=== PATIENT | female | born 1950 | race Caucasian/White ===

== ENCOUNTER 2018-01-17 13:46 | Emergency (ER) | payer OTHER ==
--- OUTSIDE RECORDS SUMMARY | 2018-01-17 13:50 | XMS REPORT | Clinical Summary ---
:1950 Author Organization [facility] Address [address] [place] [address] Care Team Providers Name Role Phone Harris Pena MD Primary Care Provider Allergies Active Allergy Reactions Severity Noted Date Comments Penicillins Hives 05/01/2015 Sulfamethoxazole-Trimethoprim 07/02/2010 Palpitations, Nausea/vomiting Sulfasalazine Hives 05/01/2015 Medications Medication Sig Dispensed Refills Start Date End Date Status clonAZEPAM Take 0.5 mg by 0 Active (KlonoPIN) 0.5 MG mouth. tablet esomeprazole Take 20 mg by 0 Active (NexIUM) 20 MG mouth. capsule traMADol (ULTRAM) 0 04/23/2017 Active 50 mg tablet tiZANidine Take 1 tablet 60 tablet 1 06/29/2017 06/29/2018 Active (ZANAFLEX) 2 MG (2 mg total) tablet by mouth nightly. traMADol (ULTRAM) Take 1 tablet 40 tablet 0 06/11/2017 09/09/2017 50 mg (50 mg total) tabletIndications: by mouth every Spinal stenosis of 8 (eight) lumbar region with hours as neurogenic needed for claudication moderate pain for up to 90 days. TiZANidine Take 1 capsule 30 capsule 0 06/11/2017 06/29/2017 Discontinued (ZANAFLEX) 2 MG (2 mg total) capsuleIndications by mouth 2 : Spinal stenosis (two) times a of lumbar region day for 120 with neurogenic days. claudication Active Problems Not on file Encounters Date Type Specialty Care Team Description 06/29/2017 Refill Orthopedic Surgery Gerson Miller MD 06/24/2017 Documentation Orthopedic Surgery Gerson Miller MD 06/17/2017 Office Visit Orthopedic Surgery Gerson Miller Spinal stenosis jayla Thompson MD lumbar region with neurogenic claudication (Primary Dx) 06/11/2017 Orders Only Orthopedic Surgery Mina Spinal stenosis of SANJUANITA Carbajal lumbar region with neurogenic claudication (Primary Dx) 06/03/2017 Hospital Encounter Radiology Gerson Miller Spinal Lashonda MD lumbar region with neurogenic claudication 05/28/2017 Orders Only Orthopedic Surgery Mina Spinal stenosis of [place] SANJUANITA lumbar region with neurogenic claudication (Primary Dx) 05/06/2017 Office Visit Orthopedic Surgery Gerson Miller Spinal Lashonda MD lumbar region with neurogenic claudication (Primary Dx) 04/27/2017 Hospital Encounter Radiology Gerson Miller Spinal stenosis jayla Thompson MD lumbar region with neurogenic claudication 04/27/2017 Office Visit Orthopedic Surgery Gerson Miller Spinal stenosis jayla Thompson MD lumbar region with neurogenic claudication (Primary Dx) after 01/16/2017 Family History Medical History Relation Name Comments Diabetes Brother Acosta Crooks Diabetes Brother Timothy Crooks Diabetes Brother Daniel Crooks Cancer Father Tadeo De La O Valeriy Medina Prostate cancer Diabetes Father Tadeo Jaylyn Crooks Jr Diabetes Mother Chaparrita Crooks Relation Name Status Comments Brother Acosta Crooks Brother Timothy Crooks Brother Daniel Crooks Father Tadeo De La O Valeriy Mother Chaparrita Crooks Social History Tobacco Use Types Packs/Day Years Used Date Former Smoker Cigarettes 1 15 Quit: 11/08/1992 Smokeless Tobacco: Never Used Alcohol Use Drinks/Week oz/Week Comments Yes 1 Glasses of wine Social Sex Assigned at Date Recorded Not on file Job Start Date Occupation Industry Not on file Not on file Not on file Travel History Travel Start Travel End No recent travel history available. Last Filed Vital Signs Vital Sign Reading Time Taken Blood Pressure 130/66 06/03/2017 1:30 PM CDT Pulse 54 06/03/2017 1:15 PM CDT Temperature 36.3 C (97.4 F) 06/03/2017 11:37 AM CDT Respiratory Rate 18 06/03/2017 1:15 PM CDT Oxygen Saturation 99% 06/03/2017 1:15 PM CDT Inhaled Oxygen Concentration - - Weight 67.1 kg (148 lb) 06/03/2017 11:37 AM CDT Height 167.6 cm (5' 6") 06/03/2017 11:37 AM CDT Body Mass Index 23.89 06/03/2017 11:37 AM CDT Plan of Treatment Health Maintenance Due Date Last Done Comments BREAST CANCER SCREENING 12/24/1999 COLON CANCER SCREENING 12/24/1999 SHINGRIX VACCINE (1 of 2) 12/24/1999 ZOSTER VACCINE 2009 PNEUMOCOCCAL POLYSACCHARIDE VACCINE AGE 65 AND OVER 2014 PNEUMOCOCCAL-13 2014 INFLUENZA VACCINE 09/08/2017 Procedures Procedure Name Priority Date/Time Associated Diagnosis Comments IR EPIDURAL Routine 06/03/2017 12:39 Spinal stenosis of Results for this INJECTION LUMBAR PM CDT lumbar region with procedure are in neurogenic the results claudication section. MRI LUMBAR SPINE WO Routine 04/27/2017 2:50 Spinal stenosis of Results for this CONTRAST PM CDT lumbar region with procedure are in neurogenic the results claudication section. after 01/16/2017 Results IR Epidural Steroid Injection Lumbar (06/03/2017 12:39 PM CDT) Narrative Performed At EXAMINATION:IR EPIDURAL STEROID INJECTION LUMBAR [facility] CLINICAL HISTORY:M48.062 Spinal stenosislumbar region with neurogenic claudication, scs COMPARISON:None. Findings: Informed consent was obtained. Lower back was prepped and draped in usual sterile fashion. 1% lidocaine was used for local anesthesia. A 20-gauge Touhy needle was advanced into posterior epidural space at L3-4 level under intermittent fluoroscopic guidance. Injection of 2 cc of Omnipaque 240 showed good opacification of the posterior epidural space. Then 2 cc of Marcaine 0.25% and 8 mg of dexamethasone were injected. No complications. Total fluoroscopic time was 1.1 minute. Total air kerma was 53 mGy. IMPRESSION: Successful fluoroscopic guided epidural steroid and anesthetic injection at L3-4. [facility]-[id number] Procedure Note Hm Interface, Radiology Results Incoming - 06/03/2017 3:10 PM CDT EXAMINATION: IR EPIDURAL STEROID INJECTION LUMBAR CLINICAL HISTORY: M48.062 Spinal stenosis lumbar region with neurogenic claudication, scs COMPARISON: None. Findings: Informed consent was obtained. Lower back was prepped and draped in usual sterile fashion. 1% lidocaine was used for local anesthesia. A 20-gauge Touhy needle was advanced into posterior epidural space at L3-4 level under intermittent fluoroscopic guidance. Injection of 2 cc of Omnipaque 240 showed good opacification of the posterior epidural space. Then 2 cc of Marcaine 0.25% and 8 mg of dexamethasone were injected. No complications. Total fluoroscopic time was 1.1 minute. Total air kerma was 53 mGy. IMPRESSION: Successful fluoroscopic guided epidural steroid and anesthetic injection at L3- 4. [facility]-[id number] Performing Organization Address City/State/Zipcode Phone Number [facility] [address] [place] [address] MRI Lumbar Spine Wo Contrast (04/27/2017 2:50 PM CDT) Narrative Performed At EXAMINATION:MRI LUMBAR SPINE WO CONTRAST [facility] COMPARISON:None CLINICAL HISTORY:M48.062 Spinal stenosislumbar region with neurogenic claudication, SCS FINDINGS: L1-2: There is a small left posterior paramedian disc protrusion without significant impingement on the thecal sac. Facets are degenerated. The neural foramina are patent. L2-3: The disc is unremarkable without bulge or protrusion. The neural foramina are patent. The facets are degenerated. L3-4: There is a left foraminal disc protrusion which touches the L3 root but is of indeterminate clinical significance. The neural foramina are otherwise patent. The facets are degenerated. L4-5: There is fairly severe degenerative disc change with associated degenerative endplate change. Other is degenerative facet change. The neural foramina are patent. L5-S1: The disc is unremarkable without bulge or protrusion. The neural foramina are patent. There are degenerative facet changes. The spinal canal is of normal diameter. There is a scoliosis concave to the left. The conus medullaris and nerve roots are unremarkable. The bone marrow is normal. There is deconditioning of the posterior paraspinous muscles. IMPRESSION: 1. Left foraminal and extra foraminal L3-4 disc protrusion which touches the L3 root but is of indeterminate clinical significance. 2. Scoliosis concave to the left. 3. Generalized degenerative facet change. 4. Deconditioning of the posterior paraspinous muscles [facility]-[id number] Procedure Note Interface, Radiology Results Incoming - 04/27/2017 3:08 PM CDT EXAMINATION: MRI LUMBAR SPINE WO CONTRAST COMPARISON: None CLINICAL HISTORY: M48.062 Spinal stenosis lumbar region with neurogenic claudication, SCS FINDINGS: L1-2: There is a small left posterior paramedian disc protrusion without significant impingement on the thecal sac. Facets are degenerated. The neural foramina are patent. L2-3: The disc is unremarkable without bulge or protrusion. The neural foramina are patent. The facets are degenerated. L3-4: There is a left foraminal disc protrusion which touches the L3 root but is of indeterminate clinical significance. The neural foramina are otherwise patent. The facets are degenerated. L4-5: There is fairly severe degenerative disc change with associated degenerative endplate change. Other is degenerative facet change. The neural foramina are patent. L5-S1: The disc is unremarkable without bulge or protrusion. The neural foramina are patent. There are degenerative facet changes. The spinal canal is of normal diameter. There is a scoliosis concave to the left. The conus medullaris and nerve roots are unremarkable. The bone marrow is normal. There is deconditioning of the posterior paraspinous muscles. IMPRESSION: 1. Left foraminal and extra foraminal L3-4 disc protrusion which touches the L3 root but is of indeterminate clinical significance. 2. Scoliosis concave to the left. 3. Generalized degenerative facet change. 4. Deconditioning of the posterior paraspinous muscles [facility]-[id number] Performing Organization Address City/State/Zipcode Phone Number [facility] [address] [place] [address] after 01/16/2017 Insurance Payer Benefit Plan / Group Subscriber ID Type Phone Address MEDICARE MEDICARE PART A AND B xxxxxxxxxx Medicare [place], [place] COMMERCIAL MISC MISC COMMERCIAL xxxxxxxxxx Commercial (Work) [id number] Advance Directives Patient has advance care planning documents on file. For more information, please contact:[facility] [place] [phone]
--- OUTSIDE RECORDS SUMMARY | 2018-01-17 13:50 | XMS REPORT ---
:1950 [facility] Address [address] [place] [address] Care Team Providers Name Role Phone Unavailable Unavailable Unavailable Payers Payer Name Policy Type Policy Number Effective Date Expiration Date Problems This patient has no known problems. Allergies, Adverse Reactions, Alerts Allergy Name Allergy Status Severity Reaction(s) Onset Inactive Treating Comments Type Date Date Clinician Penicillins DA Active U 04-16 00:00: 00 Sulfa DA Active U (Sulfonamide 04-16 Antibiotics) 00:00: 00 sulfamethoxazol DA Active U e 04-16 00:00: 00 trimethoprim DA Active U 04-16 00:00: 00 Medications This patient has no known medications.
[2018-01-17 15:50] LABS: Absolute Monocytes 0.3 K/uL (0.1-1.3); Absolute Neutrophil 2.2 K/uL (1.8-8.0); Eosinophils % 3.1 % (0-4.4); Hematocrit 40.1 % (36.0-45.0); MCH 32.4 pg (27.0-35.0); MPV 9.9 fL (7.6-11.3); Monocytes % 8.2 % (3.3-12.3); RBC Red Blood Cell Count 4.27 M/uL (3.86-4.86)
[2018-01-17] MEDS ORDERED: HYDROCODONE/APAP 10/325 TAB ONE (15:56)
[2018-01-17 16:01] LABS: Potassium 3.7 mmol/L (3.5-5.1)
[2018-01-17 16:45] LABS: Urine Blood NEGATIVE (NEG); Urine Glucose NEGATIVE (NEG); Urine Protein NEGATIVE (NEG); Urine Specific Gravity 1.015 (1.005-1.030)
--- NOTE | 2018-01-17 17:10 | RAD REPORT ---
EXAM DESCRIPTION: CT - Chest For Pe Angio - 01/17/2018 5:01 pm CLINICAL HISTORY: Chest pain. CHEST PAIN COMPARISON: Ribs Left dated 01/17/2018; Abdomen Pelvis W/Wo Contrast dated 05/13/2017 TECHNIQUE: CT angiogram of the pulmonary arteries was performed with MIP. All CT scans are performed using dose optimization technique as appropriate and may include automated exposure control or mA/KV adjustment according to patient size. FINDINGS: No evidence of pulmonary thromboembolism. No acute aortic finding demonstrated. Small opacity in the right apex may represent scarring or very early infiltrate. Otherwise, the lungs are clear. No significant pericardial or pleural fluid. No concerning bony finding. IMPRESSION: No evidence of pulmonary thromboembolism.
[2018-01-17] MEDS ORDERED: METHYLPREDNISOLONE 125 MG INJ ONE (17:41)
[2018-01-17] MEDS ORDERED: AZITHROMYCIN 250 MG TAB ONE (17:41)
--- NOTE | 2018-01-17 17:58 | ER ---
Nurse's Notes [facility] Name: Brenda Crow Age: 67 yrs Sex: Female : 1950 Arrival Date: 01/17/2018 Time: 13:50 Bed 26 Private MD: Harris Pena Diagnosis: Pleurisy;Chest pain, unspecified;Pneumonia Presentation: 01/17 13:55 Presenting complaint: Patient states: sent from [facility]; i started having chest hj pain for the past few days and SOB; EKG was done, was told it was fine, was sent here to R/O PE; hx of breast cancer;. Transition of care: patient was not received from another setting of care. Onset of symptoms was January 17, 2018. Risk Assessment: Do you want to hurt yourself or someone else? Patient reports no desire to harm self or others. Initial Sepsis Screen: Does the patient meet any 2 criteria? No. Patient's initial sepsis screen is negative. Does the patient have a suspected source of infection? No. Patient's initial sepsis screen is negative. Care prior to arrival: None. 13:55 Method Of Arrival: Ambulatory 13:55 Acuity: ULISSES 3 hj Triage Assessment: 13:59 General: Appears in no apparent distress. uncomfortable, Behavior is calm, cooperative, hj appropriate for age. Pain: Complains of pain in chest. Respiratory: Reports shortness of breath Onset: The symptoms/episode began/occurred the patient has mild shortness of breath. Historical: - Allergies: 13:58 PENICILLINS; hj 13:58 Bactrim; hj - Home Meds: 13:58 Omeprazole Oral [Active]; hj - PMHx: 13:58 breast cancer; hj - PSHx: 13:58 Mastectomy; ANKLE SURG; hj - Immunization history:: Adult Immunizations up to date. - Social history:: Smoking status: Patient/guardian denies using tobacco, Patient/guardian denies using alcohol. - Ebola Screening: : Patient negative for fever greater than or equal to 101.5 degrees Fahrenheit, and additional compatible Ebola Virus Disease symptoms Patient denies exposure to infectious person Patient denies travel to an Ebola-affected area in the 21 days before illness onset. - Family history:: not pertinent. - Hospitalizations: : No recent hospitalization is reported. Screenin:59 Abuse screen: Denies threats or abuse. Denies injuries from another. Nutritional hj screening: No deficits noted. Tuberculosis screening: No symptoms or risk factors identified. Fall Risk None identified. Assessment: 13:59 Cardiovascular: Rhythm is regular. Respiratory: Airway is patent Respiratory effort is hj even, unlabored, Breath sounds are clear. 14:30 Reassessment: Patient refused EKG, states that she had one done at her doctors and will aj1 have it faxed over. 14:30 General: Appears in no apparent distress. comfortable, Behavior is calm, cooperative, aj1 appropriate for age. Neuro: Level of Consciousness is awake, alert, obeys commands. Cardiovascular: Patient's skin is warm and dry. Respiratory: Reports shortness of breath Airway is patent Respiratory effort is even, unlabored, Respiratory pattern is regular, symmetrical, Breath sounds are clear bilaterally. GI: No signs and/or symptoms were reported involving the gastrointestinal system. : No signs and/or symptoms were reported regarding the genitourinary system. EENT: No signs and/or symptoms were reported regarding the EENT system. Derm: No signs and/or symptoms reported regarding the dermatologic system. Skin is pink, warm \T\ dry. normal. Musculoskeletal: No signs and/or symptoms reported regarding the musculoskeletal system. Circulation, motion, and sensation intact. 15:08 Reassessment: Patient states that she does not want to have blood work and CT done, she aj1 would rather just get a Rx for antibiotics and go home. Notified Dr. Paz. 15:16 Reassessment: Dr. Paz at bedside. aj1 15:30 Reassessment: Patient appears in no apparent distress at this time. No changes from aj1 previously documented assessment. Patient and/or family updated on plan of care and expected duration. Pain level reassessed. Patient is alert, oriented x 3, equal unlabored respirations, skin warm/dry/pink. 15:51 Reassessment: Patient states that she does not want pain medication at this time. aj1 Patient was instructed to notify staff if she changes her mind and would like ordered pain medication. Vital Signs: 13:59 BP 128 / 53; Pulse 87; Resp 18; Temp 97.2(O); Pulse Ox 98% on R/A; Weight 67.13 kg; hj Height 5 ft. 6 in. (167.64 cm); Pain 3/10; 18:07 BP 140 / 68; Pulse 72; Resp 18; Pulse Ox 98% on R/A; aj1 13:59 Body Mass Index 23.89 (67.13 kg, 167.64 cm) hj ED Course: 13:50 Patient arrived in ED. sb2 13:51 Harris Pena MD is Private Physician. sb2 13:57 Triage completed. hj 13:59 Arm band placed on right wrist. hj 13:59 Patient has correct armband on for positive identification. Placed in gown. Bed in low hj position. Call light in reach. Side rails up X 1. 14:17 Stuart Paz MD is Attending Physician. rn 14:30 Radiology exam delayed due to lab results not completed at this time. (BUN/Creatinine). sj 14:30 No provider procedures requiring assistance completed. aj1 14:52 Kasie Coker, ASHTYN is Primary Nurse. aj1 14:59 Radiology exam delayed due to lab results not completed at this time. (BUN/Creatinine). vr 15:44 Inserted saline lock: 22 gauge in left antecubital area, using aseptic technique. Blood aj1 collected. 16:45 Note: UNABLE TO START IV, WAITING ON NOTIFICATION FROM NURSE TO START EXAM. vr 16:50 Accessed peripheral vein via ultrasound, utilizing dynamic ultrasound technique using iw 18G Nexia IV Catheter ,sterile technique, per hospital protocol. IV inserted by Dr. Paz. 17:01 CT Chest For PE Angio In Process Unspecified. EDMS 17:57 Harris Pena MD is Referral Physician. rn 18:08 IV discontinued, intact, bleeding controlled, No redness/swelling at site. Pressure aj1 dressing applied. Administered Medications: 17:39 Drug: SOLU-Medrol 125 mg Route: IVP; Site: left antecubital; aj1 17:59 Follow up: Response: No adverse reaction aj1 17:39 Drug: Zithromax 500 mg Route: PO; aj1 17:59 Follow up: Response: No adverse reaction aj1 17:59 Not Given (Patient Refused): [place] 10 mg-325 mg 1 tabs PO once aj1 Outcome: 17:58 Discharge ordered by MD. rn 18:08 Discharged to home ambulatory, with family. aj1 18:08 Condition: good 18:08 Discharge instructions given to patient, Instructed on discharge instructions, follow up and referral plans. medication usage, Demonstrated understanding of instructions, follow-up care, medications, Prescriptions given X 2. 18:09 Patient left the ED. aj1 Signatures: Dispatcher [employer] EDKasie Briscoe, RN RN jovan1 Oly Rangel Irene RN Stuart Ortiz MD MD rn Davis, Victoria vr Joaquin, Henry, RN RN hj Billeau, Sheri sb2 Corrections: (The following items were deleted from the chart) 14:02 13:59 Pulse 87bpm; Resp 18bpm; Pulse Ox 98% RA; Temp 97.2F Oral; 67.13 kg; Height 5 ft. hj 6 in.; BMI: 23.8; Pain 3/10; hj
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
== END 2018-01-17 18:09 | disposition home or self-care (01) ==
LOC: ER 13:46
PROC: 05HF33Z Insertion of Infusion Device into Left Cephalic Vein, Percutaneous Approach (ICD-10-PCS; principal; 2018-01-17)
DX: J18.9 Pneumonia, unspecified organism (principal); R07.9 Chest pain, unspecified; Z88.0 Allergy status to penicillin; Z88.1 Allergy status to other antibiotic agents; Z85.3 Personal history of malignant neoplasm of breast
CPT/HCPCS: 36415; 36569; 71275; 80048; 81003; 85025; 96374; 99284; J2930; Q9967

== ENCOUNTER 2018-05-01 10:06 | Emergency (ER) | payer OTHER ==
--- OUTSIDE RECORDS SUMMARY | 2018-05-01 10:08 | XMS REPORT ---
:1950 [facility] Address [address] [place] [address] Care Team Providers Name Role Phone Unavailable [...]
--- OUTSIDE RECORDS SUMMARY | 2018-05-01 10:08 | XMS REPORT | Clinical Summary ---
:1950 Author Organization [facility] Address [address] [place] [address] Care Team Providers Name Role Phone Harris [...] Dx) 06/03/2017 Hospital Encounter Radiology Gerson Miller MD lumbar region with neurogenic claudication 05/28/2017 Orders Only Orthopedic Surgery Mina Spinal stenosis of [place] SANJUANITA lumbar region with neurogenic claudication (Primary Dx) 05/06/2017 Office Visit Orthopedic Surgery Gerson Miller Spinal stenosis jayla Thompson MD lumbar region with neurogenic claudication (Primary Dx) after 04/30/2017 Family History Medical History Relation Name Comments Diabetes Brother Acosta Crooks Diabetes Brother Timothy Crooks Diabetes Brother Daniel Crooks Cancer Father Tadeo De La O Valeriy Medina Prostate cancer Diabetes Father Tadeo J Valeriy Medina Diabetes Mother Chaparrita Crooks Relation Name Status Comments Brother Acosta Crooks Brother Timothy Crooks Brother Daniel Crooks Father Tadeo De La O Crooks Mother Chaparrita Crooks Social History Tobacco Use [...] CANCER SCREENING 12/24/1999 COLON CANCER SCREENING 12/24/1999 SHINGLES VACCINES (#1) 12/24/1999 65+ PNEUMOCOCCAL VACCINE (1 of 2 - PCV13) 2014 PNEUMOCOCCAL POLYSACCHARIDE VACCINE AGE 65 AND OVER 2014 INFLUENZA VACCINE 09/08/2017 Procedures Procedure Name Priority Date/Time Associated Diagnosis Comments IR EPIDURAL Routine 06/03/2017 12:39 Spinal stenosis of Results for this INJECTION LUMBAR PM CDT lumbar region with procedure are in neurogenic the results claudication section. after 04/30/2017 Results IR Epidural Steroid Injection Lumbar (06/03/2017 12:39 PM CDT) Narrative Performed At EXAMINATION:IR EPIDURAL STEROID INJECTION LUMBAR [facility] CLINICAL HISTORY:M48.062 Spinal stenosislumbar region with [...] epidural steroid and anesthetic injection at L3-4. [facility]-[id number] Procedure Note Interface, Radiology Results Incoming - 06/03/2017 3:10 [...] steroid and anesthetic injection at L3- 4. [facility]-[id number] Performing Organization Address City/State/Zipcode Phone Number [facility] [address] [place] [address] after 04/30/2017 Insurance Payer Benefit Plan / Group Subscriber ID Type Phone Address MEDICARE MEDICARE PART A AND B xxxxxxxxxx Medicare [place], [place] COMMERCIAL MISC MISC COMMERCIAL xxxxxxxxxx Commercial (Work) [id number] Advance Directives Patient has advance care planning documents on file. For more information, please contact:Evangelista Fulton[address] [place] [address]
--- NOTE | 2018-05-01 11:38 | ER ---
Nurse's Notes [facility] Name: Brenda Crow Age: 67 yrs Sex: Female : 1950 Arrival Date: 05/01/2018 Time: 10:09 Bed 19 Private MD: Harris Pena Diagnosis: Cellulitis of right upper limb Presentation: 05/01 10:10 Presenting complaint: Patient states: i have breast cancer and i have lymphedema on my hj R arm, the other day i lifted heavy stuff, last night i noticed my R arm turned red, swollen and its hot; felt a knot on the R upper arm; denies trauma to the area;. Transition of care: patient was not received from another setting of care. Onset of symptoms was May 01, 2018. Risk Assessment: Do you want to hurt yourself or someone else? Patient reports no desire to harm self or others. Initial Sepsis Screen: Does the patient meet any 2 criteria? No. Patient's initial sepsis screen is negative. Does the patient have a suspected source of infection? No. Patient's initial sepsis screen is negative. Care prior to arrival: None. 10:10 Method Of Arrival: Ambulatory 10:10 Acuity: ULISSES 4 hj Triage Assessment: 10:13 General: Appears in no apparent distress. uncomfortable, Behavior is calm, cooperative, hj appropriate for age. Pain: Denies pain. Historical: - Allergies: 10:13 Bactrim; hj 10:13 PENICILLINS; hj - Home Meds: 10:13 Omeprazole Oral [Active]; hj - PMHx: 10:13 breast cancer; hj - PSHx: 10:13 Mastectomy; ANKLE SURG; hj - Immunization history:: Adult Immunizations up to date. - Social history:: Smoking status: Patient/guardian denies using tobacco, Patient uses alcohol. - Ebola Screening: : Patient negative for fever greater than or equal to 101.5 degrees Fahrenheit, and additional compatible Ebola Virus Disease symptoms Patient denies exposure to infectious person Patient denies travel to an Ebola-affected area in the 21 days before illness onset. Screenin:13 Abuse screen: Denies threats or abuse. Denies injuries from another. Nutritional hj screening: No deficits noted. Tuberculosis screening: No symptoms or risk factors identified. Fall Risk None identified. Assessment: 10:18 General: Appears in no apparent distress. well groomed, Behavior is calm, cooperative, tw2 appropriate for age. Pain: Denies pain. Neuro: Level of Consciousness is awake, alert, obeys commands, Oriented to person, place, time, situation. Cardiovascular: Patient's skin is warm and dry. Respiratory: Respiratory effort is even, unlabored, Respiratory pattern is regular, symmetrical. GI: No signs and/or symptoms were reported involving the gastrointestinal system. : No signs and/or symptoms were reported regarding the genitourinary system. Derm: Skin temperature is warm. Musculoskeletal: Circulation, motion, and sensation intact. Swelling present in right arm warmth noted to upper right arm, cool noted to lower right arm, pt denies pain. 11:58 Reassessment: Patient appears in no apparent distress at this time. No changes from tw2 previously documented assessment. Patient and/or family updated on plan of care and expected duration. Pain level reassessed. Patient is alert, oriented x 3, equal unlabored respirations, skin warm/dry/pink. Vital Signs: 10:14 BP 113 / 71; Pulse 74; Resp 18; Temp 98.6(O); Pulse Ox 100% on R/A; Weight 66.68 kg; hj Height 5 ft. 6 in. (167.64 cm); Pain 0/10; 10:14 Body Mass Index 23.73 (66.68 kg, 167.64 cm) ED Course: 10:09 Patient arrived in ED. mr 10:10 Harris Pena MD is Private Physician. mr 10:12 Triage completed. hj 10:14 Arm band placed on right wrist. hj 10:14 Patient has correct armband on for positive identification. Bed in low position. Call light in reach. Side rails up X 1. 10:17 Fabienne Cruz RN is Primary Nurse. tw2 10:18 Sabrina Peoples FNP-C is PHCP. kb 10:18 Sven Gentile MD is Attending Physician. kb 11:09 Ultrasound completed. Patient tolerated well. Notified GLASS HANDLER/PA sabrina. sg3 11:58 No provider procedures requiring assistance completed. Patient did not have IV access tw2 during this emergency room visit. Administered Medications: 11:57 Drug: Clindamycin 300 mg Route: PO; tw2 11:57 Follow up: Response: No adverse reaction; pt states "imani taken this before for the same tw2 thing" Intake: Outcome: 11:38 Discharge ordered by MD. land 11:58 Discharged to home ambulatory, with significant other. tw2 11:58 Condition: stable 11:58 Discharge instructions given to patient, significant other, Instructed on discharge instructions, follow up and referral plans. medication usage, Demonstrated understanding of instructions, follow-up care, medications, Prescriptions given X 1. 11:59 Patient left the ED. tw2 Signatures: Dispatcher [employer] EDSabrina Corona, AUDIO DIRECTOR-C AUDIO DIRECTOR-Cklobito MejiaAlma mr HaydenJosé Miguel, RN RN hj Fabienne Cruz RN RN tw2 Christel Bhardwaj sg3 Corrections: (The following items were deleted from the chart) 10:17 10:14 Pulse 74bpm; Resp 18bpm; Pulse Ox 100% RA; Temp 98.6F Oral; 66.68 kg; Height 5 hj ft. 6 in.; BMI: 23.7; Pain 0/10; hj 12:26 12:25 In radiology for Extremity Venous Uni Ltd+US.RAD.ALEX. CITLALIFL sg3
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
[2018-05-01] MEDS ORDERED: CLINDAMYCIN HCL 150 MG CAP ONE (12:02)
--- NOTE | 2018-05-01 12:42 | RAD REPORT ---
EXAM DESCRIPTION: US - Extremity Venous Uni Ltd - 05/01/2018 12:25 pm CLINICAL HISTORY: SWELLING Right arm swelling COMPARISON: No comparisons FINDINGS: Right upper extremity venous system was interrogated with Doppler technique. Normal flow, compressibility and augmentation was noted. There is no DVT present. IMPRESSION: No evidence of right upper extremity deep venous thrombosis.
== END 2018-05-01 11:59 | disposition home or self-care (01) ==
LOC: ER 10:06
DX: L03.113 Cellulitis of right upper limb (principal); Z88.0 Allergy status to penicillin; Z88.1 Allergy status to other antibiotic agents
CPT/HCPCS: 93971; 99283

== ENCOUNTER 2018-09-23 12:07 | Emergency (ER) | payer OTHER ==
--- OUTSIDE RECORDS SUMMARY | 2018-09-23 12:09 | XMS REPORT ---
:1950 [facility] Address [address] [place] [id number] Care Team Providers Name Role Phone Unavailable [...]
--- OUTSIDE RECORDS SUMMARY | 2018-09-23 12:09 | XMS REPORT | Clinical Summary ---
:1950 Author Organization [facility] Address [address] [place] [address] Care Team Providers Name Role Phone Harris Pena MD Primary Care Provider Allergies Active Allergy Reactions Severity Noted Date Comments Penicillins Hives 05/01/2015 Sulfamethoxazole-Trimethoprim 07/02/2010 Palpitations, Nausea/vomiting Sulfasalazine Hives 05/01/2015 Medications Medication Sig Dispensed Refills Start Date End Date Status clonAZEPAM (KlonoPIN) Take 0.5 mg by 0 Active 0.5 MG tablet mouth. esomeprazole (NexIUM) Take 20 mg by 0 Active 20 MG capsule mouth. traMADol (ULTRAM) 50 0 04/23/2017 Active mg tablet tiZANidine (ZANAFLEX) Take 1 tablet 60 tablet 1 06/29/2017 06/29/2018 2 MG tablet (2 mg total) by mouth nightly. Active Problems Not on file Family History Medical History Relation Name Comments Diabetes Brother Acosta Crooks Diabetes Brother Timothy Crooks Diabetes Brother Daniel Crooks Cancer Father Tadeo De La O Valeriy Medina Prostate cancer Diabetes Father Tadeo De La O Valeriy Medina Diabetes Mother Chaparrita Crooks Relation Name Status Comments Brother Acosta Crooks Brother Timothy Crooks Brother Daniel Crooks Father Tadeo De La O Valeriy Medina Mother Chaparrita Crooks Social History Tobacco Use [...] travel history available. Last Filed Vital Signs Not on file Plan of Treatment Health Maintenance Due Date Last Done Comments BREAST CANCER SCREENING 12/24/1999 COLONOSCOPY SCREENING 12/24/1999 SHINGLES VACCINES (#1) 12/24/1999 65+ PNEUMOCOCCAL VACCINE (1 of 2 - PCV13) 2014 INFLUENZA VACCINE 09/08/2018 Results Not on fileafter 09/22/2017 Insurance Payer Benefit Plan / Subscriber ID Effective Phone Address Type Group Dates MEDICARE MEDICARE PART A xxxxxxxxxx 2009-Pre [place], [place] Medicare AND B sent COMMERCIAL MISC MISC COMMERCIAL xxxxxxxxxx 2017-Pres Commercial ent (Work) [id number] Advance Directives Patient has advance care planning documents on file. For more information, please contact:Evangelista Fulton[address] [place] [address]
--- NOTE | 2018-09-23 13:19 | RAD REPORT ---
EXAM DESCRIPTION: Roger Single View09/23/2018 1:08 pm CLINICAL HISTORY: Shortness breath COMPARISON: 2011 and 2017 FINDINGS: Chronic appearing lung and pleural opacities. The lungs are mildly hyperaerated The lungs appear clear of acute infiltrate. The heart is normal size IMPRESSION: No acute abnormalities displayed
--- NOTE | 2018-09-23 13:29 | ER ---
Nurse's Notes [facility] Name: Brenda Crow Age: 67 yrs Sex: Female : 1950 Arrival Date: 09/23/2018 Time: 12:09 Bed 12 Private MD: Harris Pena Diagnosis: Unspecified asthma with (acute) exacerbation Presentation: 09/23 12:12 Presenting complaint: Patient states: I think I am having a flare of asthma and I la1 couldn't get in to my doctor. Transition of care: patient was not received from another setting of care. Onset of symptoms was September 23, 2018. Risk Assessment: Do you want to hurt yourself or someone else? Patient reports no desire to harm self or others. Initial Sepsis Screen: Does the patient meet any 2 criteria? No. Patient's initial sepsis screen is negative. Does the patient have a suspected source of infection? No. Patient's initial sepsis screen is negative. Care prior to arrival: None. 12:12 Method Of Arrival: Ambulatory la1 12:12 Acuity: ULISSES 4 la1 Triage Assessment: 13:00 Pain: Denies pain. iw Historical: - Allergies: 12:14 Bactrim; la1 12:14 PENICILLINS; la1 - PMHx: 12:14 breast cancer; la1 - Immunization history:: Adult Immunizations up to date. - Social history:: Smoking status: Patient/guardian denies using tobacco. - Ebola Screening: : No symptoms or risks identified at this time. Screenin:16 Abuse screen: Denies threats or abuse. Nutritional screening: No deficits noted. la1 Tuberculosis screening: No symptoms or risk factors identified. Fall Risk None identified. Assessment: 12:15 General: Appears in no apparent distress. Behavior is calm, cooperative. Neuro: Level la1 of Consciousness is awake, alert, obeys commands. Cardiovascular: Capillary refill < 3 seconds Patient's skin is warm and dry. Respiratory: Airway is patent Respiratory effort is even, unlabored, Respiratory pattern is regular, symmetrical. Respiratory: Breath sounds are clear bilaterally. GI: No signs and/or symptoms were reported involving the gastrointestinal system. : No signs and/or symptoms were reported regarding the genitourinary system. Vital Signs: 12:14 BP 128 / 67; Pulse 75; Resp 16; Temp 98.6; Pulse Ox 98% on R/A; Weight 65.77 kg; Height la1 5 ft. 6 in. (167.64 cm); 12:14 Body Mass Index 23.40 (65.77 kg, 167.64 cm) la1 ED Course: 12:09 Patient arrived in ED. as 12:09 Harris Pena MD is Private Physician. as 12:13 Triage completed. la1 12:14 Arm band placed on left wrist. la1 12:16 Call light in reach. la1 12:17 Flaco Gray PA is PHCP. m 12:17 Stuart Paz MD is Attending Physician. jmm 12:38 EKG done, by human service technician. reviewed by Flaco LUNA. 12:44 X-ray completed. Portable x-ray completed in exam room. Patient tolerated procedure mh1 well. 12:47 Chest Single View XRAY In Process Unspecified. EDMS 13:21 Lakshmi Borrero, RN is Primary Nurse. iw 13:28 Harris Pena MD is Referral Physician. [facility] 13:30 No provider procedures requiring assistance completed. Patient did not have IV access iw during this emergency room visit. Administered Medications: No medications were administered Outcome: 13:28 Discharge ordered by MD. [facility] 13:30 Discharged to home ambulatory. iw 13:30 Condition: good 13:30 Discharge instructions given to patient, Instructed on discharge instructions, follow up and referral plans. medication usage, Demonstrated understanding of instructions, follow-up care, medications, Prescriptions given X 1. 13:31 Patient left the ED. iw Signatures: Dispatcher [employer] EDMS Flaco Gray PA PA [facility] Yvonne Crandall 1 Lyndsay Becerra as Lakshmi Borrero, RN RN Jan Terry RN RN [facility] Elza Sarkar
--- NOTE | 2018-09-23 13:30 | EDPHYS ---
Physician Documentation [facility] Name: Brenda Crow Age: 67 yrs Sex: Female : 1950 Arrival Date: 09/23/2018 Time: 12:09 Bed 12 Private MD: Harris Pena ED Physician Stuart Paz HPI: 09/23 12:18 This 67 yrs old Female presents to ER via Ambulatory with complaints of jmm Asthma Exacerbation. 12:18 The patient presents to the emergency department with wheezing, Current therapy: jmm albuterol nebs. Onset: The symptoms/episode began/occurred gradually, 1 week(s) ago. Modifying factors: The symptoms are alleviated by nebulizer treatment. This is a 67 year old female with a history of asthma and breast cancer patient states over the past few days she has develop shortness of breath and wheezing. patient denies chest pain, denies fever, denies body aches. Patient states she has had similar episodes with asthma exacerbations. . Historical: - Allergies: 12:14 Bactrim; la1 12:14 PENICILLINS; la1 - PMHx: 12:14 breast cancer; la1 - Immunization history:: Adult Immunizations up to date. - Social history:: Smoking status: Patient/guardian denies using tobacco. - Ebola Screening: : No symptoms or risks identified at this time. ROS: 12:18 Constitutional: Negative for fever, chills, and weight loss, Cardiovascular: Negative jmm for chest pain, palpitations, and edema. 12:18 Abdomen/GI: Negative for abdominal pain, nausea, vomiting, diarrhea, and constipation, Back: Negative for injury and pain, Neuro: Negative for headache, weakness, numbness, tingling, and seizure. 12:18 Respiratory: Positive for cough, shortness of breath, wheezing. 12:18 All other systems are negative. Exam: 12:18 Constitutional: This is a well developed, well nourished patient who is awake, alert, jmm and in no acute distress. Head/Face: atraumatic. Eyes: EOMI, no conjunctival erythema appreciated ENT: Moist Mucus Membranes Neck: Trachea midline, Supple Chest/axilla: Normal chest wall appearance and motion. Cardiovascular: Regular rate and rhythm. No edema appreciated Respiratory: Normal respirations, no respiratory distress appreciated Abdomen/GI: Non distended, soft Back: Normal ROM Skin: General appearance color normal MS/ Extremity: Moves all extremities, no obvious deformities appreciated, no edema noted to the lower extremities Neuro: Awake and alert, normal gait Psych: Behavior is normal, Mood is normal, Patient is cooperative and pleasant 12:18 Cardiovascular: Rate: normal, Rhythm: regular, Pulses: no pulse deficits are appreciated. 12:18 Respiratory: the patient does not display signs of respiratory distress, Respirations: normal, Breath sounds: are clear throughout. 13:26 ECG was reviewed by the Attending Physician. [facility] Vital Signs: 12:14 BP 128 / 67; Pulse 75; Resp 16; Temp 98.6; Pulse Ox 98% on R/A; Weight 65.77 kg; Height la1 5 ft. 6 in. (167.64 cm); 12:14 Body Mass Index 23.40 (65.77 kg, 167.64 cm) la1 MDM: 12:18 Patient medically screened. [facility] 13:27 Data reviewed: vital signs, nurses notes. Counseling: I had a detailed discussion with [facility] the patient and/or guardian regarding: the historical points, exam findings, and any diagnostic results supporting the discharge/admit diagnosis, lab results, radiology results, the need for outpatient follow up, to return to the emergency department if symptoms worsen or persist or if there are any questions or concerns that arise at home. 13:27 ED course: Patient has had similar episodes in the past with asthma exacerbations. VS [facility] normal, I do not suspect PE. Patient denies chest pain. Patient is alert and non toxic in appearance in the ED. No signs of resp distress. Patient is advised to follow up with pcp and otherwise given strict return precautions. . 09/23 12:21 Order name: Chest Single View XRAY; Complete Time: 13:27 [facility] 09/23 12:21 Order name: EKG - Nurse/Tech; Complete Time: 12:44 [facility] EC: Rate is 67 beats/min. Rhythm is regular. QRS [place] is Normal. ID interval is normal. QRS m interval is normal. QT interval is normal. No Q waves. T waves are Normal. No ST changes noted. Reviewed by me. Administered Medications: No medications were administered Disposition: 18:10 Co-signature as Attending Physician, Stuart Paz MD. rn Disposition: 09/23/18 13:28 Discharged to Home. Impression: Unspecified asthma with (acute) exacerbation. - Condition is Stable. - Discharge Instructions: Asthma, Adult. - Prescriptions for Prednisone 20 mg Oral Tablet - take 3 tablet by ORAL route once daily for 5 days; 15 tablet. - Medication Reconciliation Form, Thank You Letter, Antibiotic Education, Prescription Opioid Use form. - Follow up: Harris Pena MD; When: 2 - 3 days; Reason: Recheck today's complaints, Continuance of care, Re-evaluation by your physician. Signatures: Dispatcher [employer] EDMS Flaco Gray PA PA jmm Williams, Irene, RN RN iw Stuart Paz MD MD rn Attema, Lee, RN RN la1 Corrections: (The following items were deleted from the chart) 13:31 13:28 09/23/2018 13:28 Discharged to Home. Impression: Unspecified asthma with (acute) iw exacerbation. Condition is Stable. Forms are Medication Reconciliation Form, Thank You Letter, Antibiotic Education, Prescription Opioid Use. Follow up: Harris Pena; When: 2 - 3 days; Reason: Recheck today's complaints, Continuance of care, Re-evaluation by your physician. patrick
--- NOTE | 2018-09-24 09:10 | EKG ---
Test Date: 2018-09-23 Test Time: 12:32:58 [employer]oundskeeper: LISANDRA MEASUREMENT RESULTS: Intervals: Rate: 67 PA: 162 QRSD: 82 QT: 394 QTc: 416 [place]: P: 72 PA: 162 QRS: 73 T: 63 INTERPRETIVE STATEMENTS: Normal sinus rhythm Normal ECG Compared to ECG 08/09/2006 05:46:59 No significant changes Electronically Signed On 09-24-18 09:08:13 CDT by Gunnar Trinidad
== END 2018-09-23 13:31 | disposition home or self-care (01) ==
LOC: ER 12:07
DX: J45.901 Unspecified asthma with (acute) exacerbation (principal); Z88.0 Allergy status to penicillin; Z88.1 Allergy status to other antibiotic agents; Z85.3 Personal history of malignant neoplasm of breast
CPT/HCPCS: 71045; 93005; 99283